=== PATIENT | male | born 1945 | race American Indian/Alaskan Native ===

== ENCOUNTER 2017-01-19 05:42 | Inpatient (IN) | payer MEDICARE ==
--- NOTE | 2017-01-19 06:36 | Emergency Department Report ---
HPI - General Chief Complaint: Chest Pain Time Seen by Provider: 01/19/17 06:20 - HPI HPI: Room 21 The patient is a 71-year-old male presenting with chief complaint of extremity discomfort and diaphoresis. Patient states she is having difficulty sleeping this evening so he got up. The patient states that approximately 04:00 developed an uneasiness in bilateral upper extremities. When asked to qualify this sensation the patient states is difficult to describe but he just "couldn' t relax" in his arms. The patient states he then became diaphoretic. The patient states he laid down on the floor thinking it would help and took 2 nitroglycerin because he thought he was having a heart attack. Patient states he then called EMS. The patient states the symptoms lasted approximately 10 minutes and then resolved. Patient denied ever having had chest pain or shortness of breath. Patient has had multiple cardiac stents and had a bypass surgery in 2007. Patient states he suffered an NV in October 2016 which revealed one of his bypass grafts had required restenting. The patient's only complaint now is feeling sleepy. Patient states his bilateral upper extremity discomfort and diaphoresis has resolved and he has no other complaints. The patient states she's been compliant with his Plavix Location: [see above] Duration: [see above] Quality: "Couldn't relax" Severity: Moderate Modifying factors: [see above] Context: [see above] Mode of transportation: [not driving] ED Past Medical Hx - Past Medical History Previous Medical History?: Yes Hx Hypertension: Yes Hx Heart Attack/AMI: Yes Hx Diabetes: Yes Hx Pulmonary Embolism: Yes - Surgical History Past Surgical History?: Yes Hx Coronary Stent: Yes (X4) Additional Surgical History: pacemaker, Bypass (2007) - Family History Family history: no significant - Social History Smoking Status: Former Smoker (none 50 years) Substance Use Type: Alcohol (occasional) - Medications Home Medications: Home Medications Medication Instructions Recorded Confirmed Last Taken Type Atorvastatin Calcium [Lipitor] 40 mg PO QHS 01/19/17 01/19/17 01/18/17 History Carvedilol [Coreg] 6.25 mg PO BID 01/19/17 01/19/17 01/18/17 History Cholecalciferol (Vitamin D3) 1,000 unit PO DAILY 01/19/17 01/19/17 01/18/17 History [Vitamin D3] Clopidogrel Bisulfate [Plavix] 75 mg PO DAILY 01/19/17 01/19/17 01/18/17 History Lisinopril [Zestril] 5 mg PO QDAY 01/19/17 01/19/17 01/18/17 History Melatonin 3 mg PO QHS 01/19/17 01/19/17 01/18/17 History Mirtazapine 30 mg PO QHS 01/19/17 01/19/17 01/18/17 History Nitroglycerin [Nitrostat] 0.4 mg SL Q5M PRN 01/19/17 01/19/17 01/19/17 History Ropinirole HCl [rOPINIRole] 2 mg PO QHS 01/19/17 01/19/17 01/18/17 History ED Review of Systems ROS: Stated complaint: CHEST PAIN Other details as noted in HPI Comment: All other systems reviewed and negative Constitutional: diaphoresis Eyes: denies: eye pain, eye discharge, vision change ENT: denies: ear pain, throat pain Respiratory: denies: cough, shortness of breath, wheezing Cardiovascular: denies: chest pain, palpitations Endocrine: no symptoms reported Gastrointestinal: denies: abdominal pain, nausea, diarrhea Genitourinary: denies: urgency, dysuria Musculoskeletal: other (arms "couldn't relax") Skin: denies: rash, lesions Neurological: denies: headache, weakness, paresthesias Psychiatric: denies: anxiety, depression Hematological/Lymphatic: denies: easy bleeding, easy bruising Physical Exam - Physical Exam Vital Signs: Vital Signs 01/19/17 01/19/17 06:08 06:18 Temperature 97.6 F Pulse Rate 84 Respiratory 11 L Rate Blood Pressure 149/87 O2 Sat by Pulse 100 Oximetry Physical Exam: GENERAL: The patient is well-developed well-nourished male sitting on stretcher not appearing to be in acute distress. [] HEENT: Normocephalic. Atraumatic. Extraocular motions are intact. Patient has moist mucous membranes. NECK: Supple. No meningitic signs are noted. Trachea midline CHEST/LUNGS: Clear to auscultation. There is no respiratory distress noted. HEART/CARDIOVASCULAR: Regular. There is no tachycardia. There is no gallop rub or murmur. ABDOMEN: Abdomen is soft, nontender. Patient has normal bowel sounds. There is no abdominal distention. SKIN: There is no rash. There is no edema. There is no diaphoresis. NEURO: The patient is awake, alert, and oriented. The patient is cooperative. The patient has normal speech MUSCULOSKELETAL: There is no evidence of acute injury. ED Course Vital Signs 01/19/17 01/19/17 06:08 06:18 Temperature 97.6 F Pulse Rate 84 Respiratory 11 L Rate Blood Pressure 149/87 O2 Sat by Pulse 100 Oximetry ED Medical Decision Making - Lab Data Result diagrams: 01/19/17 06:17 01/19/17 06:17 Laboratory Tests 01/19/17 01/19/17 01/19/17 06:17 06:17 06:39 WBC 10.3 RBC 3.97 Hgb 13.1 Hct 38.2 MCV 96 H MCH 33 H MCHC 34 RDW 13.8 Plt Count 197 Lymph % (Auto) 19.3 [place] % (Auto) 5.1 Eos % (Auto) 3.4 Baso % (Auto) 0.6 Lymph # 2.0 [place] # 0.5 Eos # 0.3 Baso # 0.1 Seg Neutrophils % 71.6 H Seg Neutrophils # 7.4 D-Dimer 327.21 H Sodium 142 Potassium 4.3 Chloride 105.9 Carbon Dioxide 21 L Anion Gap 19 BUN 15 Creatinine 1.2 Estimated GFR > 60 BUN/Creatinine Ratio 12.50 Glucose 136 H Calcium 9.1 Troponin T < 0.010 NT-Pro-B Natriuret Pep 01/19/17 06:39 WBC RBC Hgb Hct MCV MCH MCHC RDW Plt Count Lymph % (Auto) [place] % (Auto) Eos % (Auto) Baso % (Auto) Lymph # [place] # Eos # Baso # Seg Neutrophils % Seg Neutrophils # D-Dimer Sodium Potassium Chloride Carbon Dioxide Anion Gap BUN Creatinine Estimated GFR BUN/Creatinine Ratio Glucose Calcium Troponin T NT-Pro-B Natriuret Pep 94.85 - EKG Data -: EKG Interpreted by Ma EKG shows normal: sinus rhythm Rate: normal - EKG Data When compared to previous EKG there are: no significant change Interpretation: unchanged when compared t (04/28/2009) - Radiology Data Radiology results: report reviewed (CT chest), image reviewed (CT chest) CT chest (read by radiologist)-there is no pulmonary embolism or aortic dissection seen. Coronary artery calcifications. - Differential Diagnosis ACS, PE, pericarditis, GERD, anxiety Critical care attestation.: If time is entered above; I have spent that time in minutes in the direct care of this critically ill patient, excluding procedure time. ED Disposition Clinical Impression: Anginal equivalent, Diaphoresis Disposition: OP ADMITTED IP TO THIS HOSP Is pt being admited?: Yes Does the pt Need Aspirin: Yes Condition: Fair Referrals: PRIMARY CARE, [Primary Care Provider] - 3-5 Days Time of Disposition: 08:49 (hospitalist paged)
[2017-01-19 06:46] LABS: Basophils % (Auto) 0.6 % (0.0-1.8); Eosinophils % (Auto) 3.4 % (0.0-4.3); Hematocrit 38.2 % (35.5-45.6); Hemoglobin 13.1 gm/dl (11.8-15.2); Mean Corpuscular HGB Conc 34 % (32-34); Mean Corpuscular Hemoglobin 33 pg (28-32); Mean Corpuscular Volume 96 fl (84-94); Platelet Count 197 K/mm3 (140-440); Red Blood Count 3.97 M/mm3 (3.65-5.03); Red Cell Distribution Width 13.8 % (13.2-15.2); White Blood Count 10.3 K/mm3 (4.5-11.0)
[2017-01-19 06:53] LABS: Anion Gap 19 mmol/L; Blood Urea Nitrogen 15 mg/dL (9-20); Calcium 9.1 mg/dL (8.4-10.2); Carbon Dioxide 21 mmol/L (22-30); Chloride 105.9 mmol/L (98-107); Glucose 136 mg/dL (75-100); Potassium 4.3 mmol/L (3.6-5.0); Sodium 142 mmol/L (137-145)
[2017-01-19] MEDS ORDERED: NACL ONE (07:46)
--- NOTE | 2017-01-19 08:41 | Cat Scan Report ---
FINAL REPORT EXAM: CT ANGIO CHEST HISTORY: extremity discomfort, diaphoresis. h/o pe TECHNIQUE: CT angiography of the chest was performed. Images were obtained after the administration of IV contrast. Coronal and sagittal reformatted images were obtained. PRIORS: None. FINDINGS: There are coronary artery atherosclerotic calcifications. There is no aortic dissection seen. There is no significant mediastinal or hilar mass seen. There are no filling defects seen within the pulmonary arterial circulation to suggest pulmonary embolism. There is no pneumothorax seen. The lungs are clear. There are no pleural effusions seen. IMPRESSION: There is no pulmonary embolism or aortic dissection seen. Coronary artery calcifications.
[2017-01-19] MEDS ORDERED: ASPIRIN PO ONE (08:49)
[2017-01-19] MEDS ORDERED: NITROSTAT SL PRN (09:40)
--- NOTE | 2017-01-19 09:49 | History and Physical Report ---
History of Present Illness Date of examination: 01/19/17 Date of admission: 01/19/17 Chief complaint: Left Sided chest pain History of present illness: Very pleasant 71-year-old -[place] male patient with significant past medical history of coronary artery disease status post CABG status post recent stents hypertension dyslipidemia fall asleep [facility] presented to the emergency room with the left-sided chest pain since last night like uneasiness and discomfort Patient grades his pain pressure type associated with mild nausea no vomiting and intermittent diaphoresis, denies shortness of breath or palpitations Denies headache or dizziness At the time of my evaluation patient denied any chest pain or shortness of breath First set of cardiac enzymes were negative, EKG no acute ST T changes Patient is on Plavix, beta blockers ,BEATA inhibitor's ,nitrates and statins and patient claims complains of his medications Past History Past Medical History: CAD, hypertension, hyperlipidemia Past Surgical History: CABG, PTCA, Other (permanent pacemaker) Social history: lives with family, smoking (former smoker 50 years), alcohol abuse (occasional), full code. denies: prescription drug abuse, IV drug use Family history: hypertension Medications and Allergies Allergies Allergy/AdvReac Type Severity Reaction Status Date / Time No Known Allergies Allergy Unverified 01/19/17 05:53 Home Medications Medication Instructions Recorded Confirmed Last Taken Type Atorvastatin Calcium [Lipitor] 40 mg PO QHS 01/19/17 01/19/17 01/18/17 History Carvedilol [Coreg] 6.25 mg PO BID 01/19/17 01/19/17 01/18/17 History Cholecalciferol (Vitamin D3) 1,000 unit PO DAILY 01/19/17 01/19/17 01/18/17 History [Vitamin D3] Clopidogrel Bisulfate [Plavix] 75 mg PO DAILY 01/19/17 01/19/17 01/18/17 History Lisinopril [Zestril] 5 mg PO QDAY 01/19/17 01/19/17 01/18/17 History Melatonin 3 mg PO QHS 01/19/17 01/19/17 01/18/17 History Mirtazapine 30 mg PO QHS 01/19/17 01/19/17 01/18/17 History Nitroglycerin [Nitrostat] 0.4 mg SL Q5M PRN 01/19/17 01/19/1717 History Ropinirole HCl [rOPINIRole] 2 mg PO QHS 01/19/17 01/19/17 01/18/17 History Active Meds: Active Medications Atorvastatin Calcium (Lipitor) 40 mg PO QHS [facility] Carvedilol (Coreg) 6.25 mg PO BID [facility] Clopidogrel Bisulfate (Plavix) 75 mg PO DAILY [facility] Lisinopril (Zestril) 5 mg PO QDAY [facility] Mirtazapine (Remeron) 30 mg PO QHS [facility] Miscellaneous Medication (Ropinirole Hcl [Ropinirole]) 2 mg PO QHS [facility] Nitroglycerin (Nitrostat) 0.4 mg SL Q5M PRN PRN Reason: Chest Pain Review of Systems Constitutional: no weight loss, no weight gain, no fever, no chills Ears, nose, mouth and throat: no nasal congestion, no nasal discharge Cardiovascular: chest pain, no orthopnea, no palpitations, no syncope, no shortness of breath Respiratory: no cough, no shortness of breath Gastrointestinal: nausea, no abdominal pain, no vomiting Genitourinary Male: no dysuria, no hematuria Musculoskeletal: no myalgias, no arthritis Integumentary: no rash, no lesions Neurological: weakness, no numbness, no seizures Psychiatric: no anxiety, no depression Endocrine: no cold intolerance, no heat intolerance, no polyuria Hematologic/Lymphatic: no easy bruising, no easy bleeding Allergic/Immunologic: no urticaria, no allergic rhinitis Exam - Constitutional Vitals: Temp Pulse Resp BP Pulse Ox 98.1 F 83 16 144/81 99 01/19/17 08:34 01/19/17 08:34 01/19/17 08:34 01/19/17 08:34 01/19/17 08:34 General appearance: Present: no acute distress - EENT Eyes: Present: PERRL, EOM intact - Neck Neck: Present: supple, normal ROM - Respiratory Respiratory effort: normal Respiratory: negative: rales, rhonchi, wheezing - Cardiovascular Rhythm: regular Heart Sounds: Present: S1 & S2 - Extremities Extremities: no ischemia, pulses intact, pulses symmetrical Peripheral Pulses: within normal limits - Abdominal General gastrointestinal: Present: soft, non-tender, non-distended, normal bowel sounds - Integumentary Integumentary: Present: clear, warm - Musculoskeletal Musculoskeletal: strength equal bilaterally - Psychiatric Psychiatric: appropriate mood/affect, cooperative - Neurologic Neurologic: CNII-XII intact, moves all extremities Results - Labs CBC & Chem 7: 01/19/17 06:17 01/19/17 06:17 Labs: Abnormal lab results 01/19/17 01/19/17 01/19/17 Range/Units 06:17 06:17 06:39 MCV 96 H (84-94) fl MCH 33 H (28-32) pg Seg Neutrophils % 71.6 H (40.0-70.0) % D-Dimer 327.21 H (0-234) ng/mlDDU Carbon Dioxide 21 L (22-30) mmol/L Glucose 136 H (75-100) mg/dL Assessment and Plan --Chest pain rule out acute coronary syndrome Patient has significant history of coronary artery disease CABG/stents in October 2016 Serial cardiac enzymes, EKG, echocardiogram for left ventricle function and ejection fraction Resume antiplatelets, beta blockers, beata inhibitors, nitrates statins Pain medications and Lovenox Cardiology consultation for assistance with management for possible stress versus cath if needed --History of coronary artery disease status post CABG status post stent placement Continue current cardiac medications --Hypertension moderate control Resume antihypertensive medications and when necessary hydralazine --Dyslipidemia on statin --DVT prophylaxis on Lovenox Closely monitor the patient had just the management as needed Plan of care discussed with the patient care physician as well as the nurse
[2017-01-19] MEDS: ZESTRIL PO SCH (10:12)
[2017-01-19 15:18] LABS: Creatine Kinase MB 2.6 ng/mL (0.0-4.0)
[2017-01-19] MEDS: COREG PO SCH ×2 (18:15→22:29)
[2017-01-19] MEDS: PLAVIX PO SCH (18:15)
[2017-01-19] MEDS ORDERED: REMERON PO SCH (22:00)
[2017-01-19] MEDS ORDERED: LOVENOX SUB-Q SCH (22:00)
[2017-01-19] MEDS ORDERED: REQUIP PO SCH (22:00)
[2017-01-20 07:48] LABS: Basophils % (Auto) 0.7 % (0.0-1.8); Eosinophils % (Auto) 4.8 % (0.0-4.3); Hematocrit 38.6 % (35.5-45.6); Hemoglobin 13.1 gm/dl (11.8-15.2); Mean Corpuscular HGB Conc 34 % (32-34); Mean Corpuscular Hemoglobin 33 pg (28-32); Mean Corpuscular Volume 96 fl (84-94); Platelet Count 195 K/mm3 (140-440); Red Blood Count 4.01 M/mm3 (3.65-5.03); Red Cell Distribution Width 13.9 % (13.2-15.2); White Blood Count 6.9 K/mm3 (4.5-11.0)
[2017-01-20 08:10] LABS: Anion Gap 18 mmol/L; Calcium 9.2 mg/dL (8.4-10.2); Carbon Dioxide 21 mmol/L (22-30); Chloride 109.5 mmol/L (98-107); Glucose 116 mg/dL (75-100); Sodium 144 mmol/L (137-145)
[2017-01-20 09:02] LABS: Blood Urea Nitrogen 10 mg/dL (9-20)
[2017-01-20 11:06] VITALS: BP 148/102
--- NOTE | 2017-01-20 12:20 | Discharge Summary ---
Providers - Providers Date of Admission: 01/19/17 09:12 Date of discharge: 01/20/17 Attending physician: CLAUDIA MAURO 01/19/17 12:42 Consult to Physician [CONS] Routine Consulting Provider: DES NEFF Reason For Exam: chest pain/h/o CABG/recent stents Place consult to:: [facility] Notified:: a service Phone number called:: [phone] Was contact made?: Yes If yes, spoke with:: elzbieta Time called:: 14:49 Comment:: added to list Primary care physician: PLASTIC ROLLER Hospitalization Reason for admission: left chest pain of one-day duration Condition: Fair Pertinent studies: CT angiogram of the chest; negative for PE or aortic dissection Coronary artery calcifications noted Hospital course: Very pleasant 21-year-old -Indian male patient with significant history of coronary artery disease CABG recent stents hypertension dyslipidemia was admitted through emergency room with left-sided chest pain Patient had serial cardiac enzymes which were negative and EKG did not reveal any acute ST-T changes Initially requested cardiology for evaluation however patient symptoms significantly improved, and today morning patient feels comfortable and denies any chest pain or shortness of breath alert awake oriented 3 Vital signs are stable, [id number] evaluation and physical examination done by me prior to discharge is unremarkable Patient is on all appropriate cardiac medications and he claims complains with medications and follow up with his primary care physician as well as broomcorn scraper at [facility] Patient is hemodynamically and clinically stable for discharge Patient's atypical chest pain could be secondary to gastroesophageal reflux disease Prescription is given for Pepcid advised to follow with PMD and broomcorn scraper per schedule Final diagnosis; Atypical chest pain resolved Probably secondary to gastroesophageal reflux disease History of coronary artery disease status post CABG Status post PCI Hypertension Dyslipidemia Disposition: DISCHARGED TO HOME OR SELFCARE Time spent for discharge: 32 min Core Measure Documentation - Palliative Care Palliative Care/ Comfort Measures: Not Applicable - Core Measures Any of the following diagnoses?: none Exam - Constitutional Vitals: Temp Pulse Resp BP Pulse Ox 97.7 F 76 16 148/102 100 01/20/17 09:00 01/20/17 09:00 01/20/17 09:00 01/20/17 09:00 01/20/17 09:00 General appearance: Present: no acute distress, well-nourished - EENT Eyes: Present: PERRL, EOM intact - Neck Neck: Present: supple, normal ROM - Respiratory Respiratory effort: normal Respiratory: negative: rales, rhonchi, wheezing - Cardiovascular Rhythm: regular Heart Sounds: Present: S1 & S2 - Extremities Extremities: no ischemia, pulses intact, pulses symmetrical Peripheral Pulses: within normal limits - Abdominal General gastrointestinal: Present: soft, non-tender, non-distended, normal bowel sounds - Integumentary Integumentary: Present: clear, warm - Musculoskeletal Musculoskeletal: strength equal bilaterally - Psychiatric Psychiatric: appropriate mood/affect, cooperative - Neurologic Neurologic: CNII-XII intact, moves all extremities Plan Activity: no restrictions Diet: other (cardiac diet) Additional Instructions: f/u PMD 1 week. f/u Die Engraving Supervisor as needed or per schedule. If you have chest pain or shortness of breath contact M.D. or go to emergency room Follow up with: PRIMARY CARE, [Primary Care Provider] - 3-5 Days Prescriptions: Famotidine/Ca Carb/Mag Hydrox [Pepcid Complete Tablet Chew] 1 each PO BID #30 tab.[email or web address]
[2017-01-20] MEDS: PLAVIX PO SCH (13:25)
[2017-01-20] MEDS: ZESTRIL PO SCH (13:25)
[2017-01-20] MEDS: COREG PO SCH (13:26)
--- NOTE | 2017-01-20 19:18 | Admit Criteria Form ---
Admission Criteria Documentation: CARDIOLOGY GRG Clinical Indications for Admission to Inpatient Care ( Place 'X' for any and all applicable criteria): Hospital admission is needed for appropriate care of the patient because of ANY ONE of the following (1): [ ] I. Hemodynamic instability as indicated by ALL of the following (1)(2)(3) (4)(5) [ ]a) Vital signs or other findings not as expected for chronic patient condition or baseline [ ]b) Instability indicated by ANY ONE of the following: [ ]i) Hypotension [ ]ii) Symptomatic Tachycardia unresponsive to treatment ( e.g., analgesia, fluids, sedation as indicated) [ ]iii) Inadequate perfusion indicated by ANY ONE of the following: [ ] 1) Lactic acidosis (> 2 mmol/L) [ ] 2) New abnormal capillary refill (> 3 seconds) [ ] 3) Reduced urine output [ ] 4) New altered mental status [ ]iv) Orthostatic vital sign changes unresponsive to treatment (e.g., fluids) [ ]v) IV inotropic or vasopressor medication required to maintain adequate blood pressure or perfusion [ ] II. Severe heart failure as indicated by ANY ONE of the following(17)(18) [ ]a) Respiratory distress [ ]b) Hypotension [ ]c) Anasarca (refractory to outpatient therapy) [ ]d) Cardiac arrhythmias of immediate concern [ ]e) Myocardial ischemia [ ] III. Cardiac arrhythmias or findings of immediate concern indicated by ANY ONE of the following (19)(20): [ ] a) Heart rhythms that are inherently dangerous or unstable indicated by ANY ONE of the following (21)(22)(23): [ ] i) Resuscitated ventricular fibrillation or cardiac arrest [ ] ii) Ventricular escape rhythm [ ] iii) Sustained ventricular tachycardia (30 seconds or more of ventricular rhythm at greater than 100 beats per minute) [ ] iv) Nonsustained ventricular tachycardia and ANY ONE of the following: [ ] 1) Suspected cardiac ischemia as cause or consequence of ventricular tachycardia [ ] 2) In setting of acute myocarditis [ ] b) Unstable cardiac conduction defects indicated by ANY ONE of the following(23)(24)(25) [ ] i) Type II second-degree atrioventricular block [ ]ii) Third-degree atrioventricular block [ ]iii) New-onset left bundle branch block with suspected myocardial ischemia [ ]c) Any heart rhythm and ANY ONE of the following (21)(22)(26)(27) (28) [ ] i) Continuous long-term ECG monitoring needed (e.g., initiation of drug requiring monitoring for more than 24 hours) [ ] ii) Patient has automatic implanted cardioverter defibrillator that is repeatedly firing, malfunctioning, or in need of immediate adjustment of settings beyond the scope of ambulatory or observation care [ ]d) Heart rhythms of concern due to ANY ONE of the following: [ ] i) Hypotension [ ] ii) Respiratory distress [ ] iii) Association with other significant symptoms (e.g., bradycardia with syncope or ongoing dizziness, supraventricular tachycardia with chest pain (14)(15)(17) [ ] IV. Monitoring for cardiac contusion beyond the scope of observation care needed [A](30)(31)(32) [ ] V. Surgical or device complication (e.g., valve replacement complication , pacemaker dysfunction) (35)(41)(44)(45)(46) [ ] . Inpatient palliative care needed. [B](49) Also use Inpatient Palliative Care Criteria [ ] VII. Nonbacterial thrombotic (marantic) endocarditis (36)(43)(47)(48) [X ] VIII. Cardiology condition, symptom, or finding for which emergency and observation care has failed or are not considered appropriate. [ ] IX. Acute valvular disease requiring inpatient as indicated by ANY ONE of the following (41) [ ]a) Acute valvular regurgitation (42) [ ]b) Noninfectious valvulitis (43) [ ]c) Obstructive valve thrombosis [ ]d) Paravalvular leak [ ]e) Other significant valvular disorder remaining after emergency or observation level of care (as appropriate) [ ]X. Pericardial disease requiring inpatient treatment as indicated by ANY ONE of the following (33)(34)(35)(36)(37) [ ]a) Suspected tamponade (38)(39)(40) [ ]b) Hemopericardium [ ]c) Other significant pericardial disorder remaining after emergency or observation level of care (as appropriate) [ ] XI. Cardiac ischemia beyond scope of emergency and observation care. [ ] XII. Hypertension requiring inpatient treatment as indicated by ANY ONE of the following (6)(7)(8) [ ]a) SBP greater than 220 mm Hg or DBP greater than 120 mmHg despite treatment [ ]b) SBP greater than 140 mm Hg or DBP greater than 100 mm Hg with evidence of acute end organ damage as indicated by ANY ONE of the following [ ] i) Altered mental status [ ] ii) Acute renal failure as indicated by new onset of ANY ONE of the following (9)(10)(11)(12)(13) [ ]1) 3-fold rise in serum creatinine from baseline [ ]2) Serum creatinine greater than 4 mg/dL ( 354 micromoles/L) with acute rise greater than 0.5 mg/dL (44.2 micromoles/L) [ ]3) Reduction of more than 75% in estimated glomerular filtration rate from baseline [ ]4) Estimated glomerular filtration rate less than 35 mL/min/1.73m2 (0.59 mL/sec/1.73m2) in child up to 18 years of age [ ]5) Cessation of urine output indicated by ALL of the following [ ]A. Adequate volume status [ ]B. Inadequate urine output as indicated by ANY ONE of the following [ ]a. Urine output less than 0.3 mL/kg/hr for 24 hours [ ]b. Anuria (urine output less than 0.1 mL/kg/hr) for 12 hours [ ] iii) Aortic dissection [ ] iv) Myocardial Ischemia [ ] v) Left ventricular heart failure [ ]vi) Retinal Hemorrhage [ ]vii) Other significant finding [ ]c) Hypertension in child requiring inpatient treatment as indicated by ALL of the following(14)(15)(16) [ ] i) Outpatient treatment not effective, not available, or not appropriate [ ]ii) SBP or DBP greater than 95th percentile for age [ ]iii) Evidence of acute end organ damage as indicated by ANY ONE of the following [ ]1) Altered mental status [ ]2) Acute renal failure as indicated by new onset of ANY ONE of the following(9)(10)(11)(12)(13) [ ]A. 3-fold rise in serum creatinine from baseline [ ]B. Serum creatinine greater than 4 mg/dL (354 micromoles/L) with acute rise greater than 0.5 mg/dL (44.2 micromoles/L) [ ]C. Reduction of more than 75% in estimated glomerular filtration rate from baseline [ ]D. Estimated glomerular filtration rate less than 35 mL/min/1.73m2 (0.59 mL/sec/1.73m2) in child up to 18 years of age [ ]E. Cessation of urine output indicated by ALL of the following [ ]a. Adequate volume status [ ]b. Inadequate urine output as indicated by ANY ONE of the following [ ]i) Urine output less than 0.3 mL/kg/hr for 24 hours [ ]ii) Anuria ( urine output less than 0.1 mL/kg/hr) for 12 hours [ ]3) Severe headache [ ]4) Visual disturbance [ ]5) Retinal hemorrhage [ ]6) Other significant finding [ ]XIII. Complications of transplanted heart indicated by ANY ONE of the following(61): [ ]a) Acute graft rejection requiring inpatient management (eg, intravenous immunosuppression)(62)(63) [ ]b) Acute graft heart failure indicated by ANY ONE of the following(64): [ ]i) Hemodynamic instability [ ]ii) Cardiac arrhythmias of immediate concern [ ]iii) Pulmonary edema that is very severe (eg, mechanical ventilation needed, imminent or likely, need for 100% oxygen to keep oxygen saturation above 90%) [ ]iv) Pulmonary edema that is persistent as indicated by ALL of the following: [ ]1) New need for oxygen therapy to keep oxygen saturation above 90% (or increased FiO2 need from baseline) [ ]2) Has not improved sufficiently with emergency department or observation care IV diuretics or other heart failure treatments[E] [ ]v) Altered mental status that is severe or persistent [ ]vi) Increased creatinine (new on laboratory test) with reduction of more than 50% in estimated glomerular filtration rate from baseline [ ]vii) Progressively (ongoing) rising creatinine (known from past laboratory test) with reduction of more than 25% in estimated glomerular filtration rate from baseline [ ]viii) Acute renal failure [ ]ix) Acute peripheral ischemia (eg, examination shows pulseless, cool, mottled, or cyanotic extremity) [ ]x) Pulmonary artery catheter monitoring needed [ ]xi) Other sign or symptom of heart failure requiring inpatient treatment (ie, too severe or not responsive to outpatient and observation care treatment) [ ]c) Infection requiring inpatient management (eg, Hemodynamic instability, need for intravenous antimicrobial treatment)(66)(67)(68)(69)(70) [ ]d) Cardiac allograft vasculopathy requiring inpatient management ( eg evidence of cardiac ischemia)(71) [ ]e) Other complication of transplanted heart (eg, stroke, severe pulmonary hypertension, severe valvular dysfunction) requiring inpatient management(72) The original [facility] content created by [facility] has been revised. The portions of the content which have been revised are identified through the use of italic text or in bold, and [facility] has neither reviewed nor approved the modified material. All other unmodified content is copyright [facility] [employer]. Please see references footnoted in the original [facility] [employer] edition 2016 Admission Criteria Met: Yes
--- NOTE | 2017-01-20 20:03 | Event Note ---
Date: 01/20/17 The patient was discharged from the hospital and was gone before cardiology consultation could be completed. Cardiac consult was therefore not performed since the patient was no longer available. If needed, please have the patient see us in the office outpatient.
== END 2017-01-20 14:01 | disposition home or self-care (01) | DRG 392 ==
LOC: ED 05:42 → 4A 09:12
PROVIDERS: ADMIT Internal Medicine; ATTEND Internal Medicine
DX: K21.9 Gastro-esophageal reflux disease without esophagitis (principal); I10 Essential (primary) hypertension; E78.5 Hyperlipidemia, unspecified; E11.9 Type 2 diabetes mellitus without complications; I25.10 Atherosclerotic heart disease of native coronary artery without angina pectoris; Z87.891 Personal history of nicotine dependence; Z95.1 Presence of aortocoronary bypass graft; Z98.61 Coronary angioplasty status; Z86.711 Personal history of pulmonary embolism; Z95.0 Presence of cardiac pacemaker; Z82.49 Family history of ischemic heart disease and other diseases of the circulatory system
CPT/HCPCS: 36415; 71275; 80048; 80061; 82550; 82553; 82962; 83880; 84484; 85025; 85379; 93005; 93010; A9270-GY; J1650; Q9967

== ENCOUNTER 2017-05-23 03:35 | Inpatient (IN) | payer MEDICARE, OTHER ==
[2017-05-23 04:25] LABS: Basophils % (Auto) 0.4 % (0.0-1.8); Eosinophils % (Auto) 3.5 % (0.0-4.3); Hematocrit 39.8 % (35.5-45.6); Hemoglobin 13.8 gm/dl (11.8-15.2); Mean Corpuscular HGB Conc 35 % (32-34); Mean Corpuscular Hemoglobin 33 pg (28-32); Mean Corpuscular Volume 96 fl (84-94); Platelet Count 173 K/mm3 (140-440); Red Blood Count 4.13 M/mm3 (3.65-5.03); Red Cell Distribution Width 14.1 % (13.2-15.2); White Blood Count 9.7 K/mm3 (4.5-11.0)
[2017-05-23 04:28] LABS: Anion Gap 19 mmol/L; Blood Urea Nitrogen 12 mg/dL (9-20); Calcium 9.4 mg/dL (8.4-10.2); Carbon Dioxide 22 mmol/L (22-30); Chloride 102.5 mmol/L (98-107); Glucose 126 mg/dL (75-100); Potassium 3.8 mmol/L (3.6-5.0); Sodium 140 mmol/L (137-145)
--- NOTE | 2017-05-23 06:35 | Emergency Department Report ---
ED Chest Pain HPI - General Chief Complaint: Chest Pain Stated Complaint: CHEST PAIN Time Seen by Provider: 05/23/17 06:30 Source: patient Mode of arrival: Stretcher Limitations: No Limitations - History of Present Illness Initial Comments: Patient is stated that he has chest pain left-sided started last night. Heaviness in nature similar to what he have in the beginning of the year when he have his four stents at [facility]. Complaint: chest pain -: Last night Onset: during rest Pain Location: substernal Severity scale (0 -10): 7 Quality: heaviness, similar to prior DC Improves With: nitroglycerin re: denies: nausea, vomting, diaphoresis, dyspnea Other Symptoms: denies: cough, fever, acid taste in mouth, palpitations Treatments Prior to Arrival: aspirin, nitroglycerin - Related Data Home Medications Medication Instructions Recorded Confirmed Last Taken Atorvastatin Calcium [Lipitor] 40 mg PO QHS 01/19/17 05/23/17 02/24/17 Cholecalciferol (Vitamin D3) 2,000 unit PO DAILY 01/19/17 05/23/17 02/24/17 [Vitamin D3] Clopidogrel Bisulfate [Plavix] 75 mg PO DAILY 01/19/17 05/23/17 02/24/17 Lisinopril [Zestril TAB] 5 mg PO QDAY 01/19/17 05/23/17 02/24/17 Mirtazapine 30 mg PO QHS 01/19/17 05/23/17 02/24/17 Ropinirole HCl [rOPINIRole] 2 mg PO QHS 01/19/17 05/23/17 02/24/17 Aspirin EC [Aspirin Enteric Coated 81 mg PO QDAY 03/04/17 05/23/17 02/24/17 TAB] Omeprazole Magnesium [PriLOSEC Otc] 40 mg PO QDAY 03/04/17 05/23/17 02/24/17 Ferrous Sulfate [Feosol] 325 mg PO BID 05/23/17 05/23/17 Unknown Allergies Allergy/AdvReac Type Severity Reaction Status Date / Time No Known Allergies Allergy Verified 03/04/17 11:27 Heart Score - HEART Score History: Highly suspicious EKG: Non-specific Age: > 65 Risk factors: > 3 risk factors or hx of atherosclerotic disease Troponin: < normal limit HEART Score: 7 - Critical Actions Critical Actions: >7 pts:50-65% risk of adverse cardiac event. Early invasive measures ED Review of Systems ROS: Stated complaint: CHEST PAIN Other details as noted in HPI Comment: All other systems reviewed and negative Constitutional: denies: chills, fever Respiratory: denies: cough, shortness of breath Cardiovascular: chest pain. denies: palpitations, dyspnea on exertion, edema, syncope Gastrointestinal: denies: abdominal pain, nausea, vomiting Skin: denies: rash Neurological: denies: headache, numbness, paresthesias ED Past Medical Hx - Past Medical History Previous Medical History?: Yes Hx Hypertension: Yes Hx Heart Attack/AMI: Yes (10/2016) Hx Diabetes: Yes Hx Pulmonary Embolism: Yes - Surgical History Hx Coronary Stent: Yes (X4) Additional Surgical History: pacemaker, Bypass (2008) - Social History Smoking Status: Never Smoker Substance Use Type: None - Medications Home Medications: Home Medications Medication Instructions Recorded Confirmed Last Taken Type Atorvastatin Calcium [Lipitor] 40 mg PO QHS 01/19/17 05/23/17 02/24/17 History Cholecalciferol (Vitamin D3) 2,000 unit PO DAILY 01/19/17 05/23/17 02/24/17 History [Vitamin D3] Clopidogrel Bisulfate [Plavix] 75 mg PO DAILY 01/19/17 05/23/17 02/24/17 History Lisinopril [Zestril TAB] 5 mg PO QDAY 01/19/17 05/23/17 02/24/17 History Mirtazapine 30 mg PO QHS 01/19/17 05/23/17 02/24/17 History Ropinirole HCl [rOPINIRole] 2 mg PO QHS 01/19/17 05/23/17 02/24/17 History Aspirin EC [Aspirin Enteric Coated 81 mg PO QDAY 03/04/17 05/23/17 02/24/17 History TAB] Omeprazole Magnesium [PriLOSEC Otc] 40 mg PO QDAY 03/04/17 05/23/17 02/24/17 History Ferrous Sulfate [Feosol] 325 mg PO BID 05/23/17 05/23/17 Unknown History ED Physical Exam - General Limitations: No Limitations General appearance: alert, in no apparent distress - Head Head exam: Present: atraumatic, normocephalic - Eye Eye exam: Present: normal appearance - ENT ENT exam: Present: normal exam - Neck Neck exam: Present: normal inspection. Absent: tenderness, meningismus, full ROM - Respiratory Respiratory exam: Present: normal lung sounds bilaterally. Absent: respiratory distress, wheezes, chest wall tenderness, decreased breath sounds - Cardiovascular Cardiovascular Exam: Present: normal rhythm, normal heart sounds. Absent: bradycardia, tachycardia - GI/Abdominal GI/Abdominal exam: Present: soft. Absent: distended, tenderness, guarding, rebound - Back Exam Back exam: Present: normal inspection. Absent: CVA tenderness (R), CVA tenderness (L) - Neurological Exam Neurological exam: Present: alert, oriented X3, CN II-XII intact - Skin Skin exam: Present: warm, intact ED Course Vital Signs 05/23/17 05/23/17 05/23/17 03:55 04:07 04:19 Temperature 98.4 F Pulse Rate 81 83 Respiratory 16 13 13 Rate Blood Pressure 148/95 Blood Pressure 144/89 [Right] O2 Sat by Pulse 100 100 100 Oximetry 05/23/17 05/23/17 05/23/17 04:30 05:00 05:31 Temperature Pulse Rate 80 87 84 Respiratory 16 18 14 Rate Blood Pressure 142/82 156/87 160/89 Blood Pressure [Right] O2 Sat by Pulse 100 100 99 Oximetry 05/23/17 06:00 Temperature Pulse Rate 81 Respiratory 21 Rate Blood Pressure 123/71 Blood Pressure [Right] O2 Sat by Pulse 100 Oximetry - Reevaluation(s) Reevaluation #1: 05/23/17 07:16 Patient still denying chest pain at this moment we'll admit for rule out. Discussed with Jacy DENTURE WAXER for admission. ED Medical Decision Making - Lab Data Result diagrams: 05/23/17 03:57 05/23/17 03:57 Critical care attestation.: If time is entered above; I have spent that time in minutes in the direct care of this critically ill patient, excluding procedure time. ED Disposition Clinical Impression: Chest pain Disposition: -09 OP ADMIT IP TO THIS HOSP Is pt being admited?: Yes Instructions: Chest Pain (ED) Referrals: PRIMARY CARE,MD [Primary Care Provider] - 3-5 Days
--- NOTE | 2017-05-23 07:33 | XRay Report ---
AP CHEST: HISTORY: chest pain Previous cardiac surgery changes. A 2-lead pacemaker device is in position. AP view of the chest demonstrates a normal mediastinal and cardiac contour with clear lungs and normal bony and soft tissue structures. IMPRESSION: Unremarkable AP chest.
--- NOTE | 2017-05-23 07:50 | Admit Criteria Form ---
Admission Criteria Documentation: CHEST PAIN Clinical Indications for Admission to Inpatient Care (Place 'X' for any and all applicable criteria): Admission is indicated for chest pain and ANY ONE of the following(1)(2)(3)(4)(5 ): [ ]I. Angina with acute coronary syndrome (Also use Myocardial Infarction or Angina guideline) [ ]II. Hemodynamic instability [X ]III. Angina needing acute intervention as indicated by ALL of the following (11)(12): [ X]a) Unstable angina is present as indicated by angina that is ANY ONE of the following: [ ]i) New onset [ X]ii) Nocturnal [ ]iii) Prolonged at rest [ ]iv) Progressive [X ]b) Angina warrants acute intervention as indicated by ANY ONE of the following: [ ]i) Recurrent angina (e.g, not responding as previously to treatment) [ ]ii) Angina at rest or with low-level activities despite initial medical therapy [ ]iii) New or presumably new ST-segment depression on ECG [ ]iv) Signs or symptoms of heart failure (eg, dyspnea, pulmonary edema) [ ]v) New or worsening mitral regurgitation [ ]vi) Hemodynamic instability [ ]vii) Dangerous arrhythmia (eg, sustained ventricular tachycardia) [ ]viii) History of percutaneous coronary intervention within 6 months [ ]ix) History of coronary artery bypass graft surgery [ ]x) SHIRLEY risk score of 2 or greater[A] [X ]xi) History of Diabetes(14) [ ]xii) High-risk cardiac ischemia findings on noninvasive testing (e.g, echocardiogram, treadmill testing, nuclear scan) [ ]xiii) Chronic renal insufficiency (ie, estimated GFR less than 60 mL/min/1.732m) [ ]xiv) Left ventricular ejection fraction less than 40% [ ]IV. Evidence of DC (eg, cardiac biomarkers positive, ST-segment elevation on ECG) also use Myocardial Infarction Criteria Form. [ ]V. Pulmonary edema [ ]. Respiratory distress [ ]VII. Chest pain indicative of serious diagnosis other than coronary artery disease (eg, aortic dissection) [ ]VIII. Contraindications and/or Inappropriate clinical situations for Observational Care in patients with Chest Pain, when ANY ONE of the following is required: [ ]a) Patient with risk factor for pulmonary embolism, acute coronary syndrome and myocardial infarction (18) [ ]b) Patient with Pulmonary embolism require an average LOS of 4.3 days, therefore emergency department observation management is inappropriate 18,23 [ ]c) Painful condition/s in the elderly, have the highest rate of recidivism after emergency department observation management (10.8%) 20,21,22 [ ]d) Elevated cardiac biomarker requires intensive and exhaustive care (19) [X ]IX. General contraindications and/or Inappropriate clinical situations for Observational Care in patients with Chest Pain, when ANY ONE of the following is required: [X ]a) Prediction of prolongation of LOS based on ANY ONE of the following may be considered as a contraindication for observational care 2, 3, 4, 5, 6, 7, 8, 9, 10, 11 [ X]i) Age > 65 yrs. [X ]ii) Patient arriving by ambulance [ ]iii) Patient with high acuity [ ]iv) Patient requiring vital sign monitoring [ ]v) Patient on IV medication [ ]b) Systolic blood pressures 180mmHg 3,12 [ ]c) Patient with altered mental status including delirium and other alteration of consciousness, (3) [ ]d) Patient whose discharge disposition will be to a penitentiary home or rehabilitation home should not be managed in Emergency Department Observation Unit. CMS rule requires 3 days hospital stay before such placement. 3,13 [ ]e) Patient with failure to thrive due to broad array of etiologies 3,16,17 [ ]f) Inability to ambulate 3,14 Extended stay beyond goal length of stay may be needed for (1)(28): [ ]a) Specific condition diagnosed after evaluation (eg, pulmonary embolism, aortic dissection) [ ]b) Unstable angina [ ]c) Continued suspicion of acute coronary syndrome with inability to complete needed cardiac evaluation (eg, patient clinically unable to undergo stress testing) [ ]d) Myocardial infarction (Contents from ANGINA and CHEST PAIN clinical indications for admission to inpatient care have been integrated in this form) The original [employer] content created by [employer] has been revised. The portions of the content which have been revised are identified through the use of italic text or in bold, and [facility] has neither reviewed nor approved the modified material. All other unmodified content is copyright [facility]. Please see references footnoted in the original [facility] edition 2016 Admission Criteria Met: Yes
[2017-05-23] MEDS ORDERED: TYLENOL PO PRN (08:11)
[2017-05-23] MEDS ORDERED: DULCOLAX PR PRN (08:11)
[2017-05-23] MEDS ORDERED: MORPHINE IV PRN (08:11)
--- NOTE | 2017-05-23 08:16 | History and Physical Report ---
<ISRA PHAM - Last Filed: 05/26/17 07:25> History of Present Illness Date of examination: 05/23/17 Date of admission: 05/23/2017 Chief complaint: Chest pain History of present illness: Patient is a 71 years -[place] male with past medical history of hypertension, diabetes mellitus, hyperlipidemia and recent [place], who presented to the ED complaining of right chest pain. He states that the pain began last night and consisted of a dull pain. The pain was located over his left chest area somewhat near his shoulder; non radiating. The onset of pain came while the patient was at home watching TV. The pain is a dull, constant pain. He continued to have several episodes of the pain throughout the night, so he decided to call 911 and they brought him to the emergency department. The painful episodes did not increase in intensity or severity during this time. Patient was given nitroglycerin, ASA and which he claims helped alleviate the pain somewhat. All There is no aggravating factor. The patient currently rated his pain a score of 3/10. He experienced shortness of breath and diaphoresis during these episodes of pain. He denies nausea vomiting. Past History Past Medical History: diabetes, hypertension, other (OK on October 2016) Past Surgical History: CABG (2007) Social history: denies: smoking, alcohol abuse Family history: CAD, hypertension Medications and Allergies Allergies Allergy/AdvReac Type Severity Reaction Status Date / Time No Known Allergies Allergy Verified 03/04/17 11:27 Home Medications Medication Instructions Recorded Confirmed Last Taken Type Atorvastatin Calcium [Lipitor] 40 mg PO QHS 01/19/17 05/23/17 02/24/17 History Cholecalciferol (Vitamin D3) 2,000 unit PO DAILY 01/19/17 05/23/17 02/24/17 History [Vitamin D3] Clopidogrel Bisulfate [Plavix] 75 mg PO DAILY 01/19/17 05/23/17 02/24/17 History Lisinopril [Zestril TAB] 5 mg PO QDAY 01/19/17 05/23/17 02/24/17 History Mirtazapine 30 mg PO QHS 01/19/17 05/23/17 02/24/17 History Ropinirole HCl [rOPINIRole] 2 mg PO QHS 01/19/17 05/23/17 02/24/17 History Aspirin EC [Aspirin Enteric Coated 81 mg PO QDAY 03/04/17 05/23/17 02/24/17 History TAB] Omeprazole Magnesium [PriLOSEC Otc] 40 mg PO QDAY 03/04/17 05/23/17 02/24/17 History Ferrous Sulfate [Feosol] 325 mg PO BID 05/23/17 05/23/17 Unknown History Active Meds: Active Medications Acetaminophen (Tylenol) 650 mg PO Q4H PRN PRN Reason: Pain MILD(1-3)/Fever >100.5/BERNAL Aspirin (Halfprin Ec) 81 mg PO QDAY [facility] Atorvastatin Calcium (Lipitor) 40 mg PO QHS [facility] Bisacodyl (Dulcolax) 10 mg [place] QDAY PRN PRN Reason: Constipation unrelieved by MOM Clopidogrel Bisulfate (Plavix) 75 mg PO DAILY [facility] Enoxaparin Sodium (Lovenox) 40 mg SUB-Q QDAY [facility] Ferrous Sulfate (Feosol) 325 mg PO BID [facility] Dextrose/Sodium Chloride (D5/0.45ns) 1,000 mls @ 75 mls/hr IV DIRECT [facility] Lisinopril (Zestril) 5 mg PO QDAY [facility] Mirtazapine (Remeron) 30 mg PO QHS [facility] Miscellaneous Medication (Cholecalciferol (Vitamin D3) [Vitamin D3]) 2,000 unit PO DAILY [facility] Miscellaneous Medication (Omeprazole Magnesium [Prilosec Otc]) 40 mg PO QDAY [facility] Miscellaneous Medication (Ropinirole Hcl [Ropinirole]) 2 mg PO QHS [facility] Morphine Sulfate (Morphine) 2 mg IV Q4H PRN PRN Reason: Pain, Moderate (4-6) Review of Systems Constitutional: no weight loss, no weight gain, no fever Ears, nose, mouth and throat: no deferred, no ear pain, no ear discharge, no tinnitis, no decreased hearing Cardiovascular: chest pain, no palpitations, no rapid/irregular heart beat, no edema, no lightheadedness Respiratory: no cough, no cough with sputum, no excessive sputum, no hemoptysis , no shortness of breath Gastrointestinal: no nausea, no vomiting, no diarrhea Genitourinary Male: no hematuria, no flank pain, no discharge Rectal: no pain, no incontinence Musculoskeletal: no neck stiffness, no neck pain, no shooting arm pain, no low back pain Integumentary: no rash, no pruritis, no redness, no sores Neurological: no head injury, no transient paralysis, no paralysis Psychiatric: no anxiety, no memory loss, no change in sleep habits Endocrine: no cold intolerance, no heat intolerance, no polyphagia, no weight change Hematologic/Lymphatic: no easy bruising, no easy bleeding Allergic/Immunologic: no urticaria, no allergic rhinitis Exam - Constitutional Vitals: Temp Pulse Resp BP Pulse Ox 98.4 F 79 19 114/67 100 05/23/17 03:55 05/23/17 07:00 05/23/17 07:00 05/23/17 07:00 05/23/17 07:00 General appearance: Present: no acute distress - EENT Eyes: Present: PERRL ENT: hearing intact - Respiratory Respiratory effort: normal Respiratory: bilateral: CTA - Cardiovascular Rhythm: regular Heart Sounds: Present: S1 & S2 - Extremities Extremities: no ischemia Peripheral Pulses: within normal limits - Abdominal General gastrointestinal: Present: soft, non-tender Male genitourinary: Present: deferred - Rectal Rectal Exam: deferred - Integumentary Integumentary: Present: clear, warm, dry - Musculoskeletal Musculoskeletal: strength equal bilaterally - Psychiatric Psychiatric: appropriate mood/affect - Neurologic Neurologic: CNII-XII intact - Allied Health Allied health notes reviewed: nursing Results - Labs CBC & Chem 7: 05/23/17 03:57 05/23/17 03:57 Labs: Laboratory Last Values WBC 9.7 K/mm3 (4.5-11.0) 05/23/17 03:57 RBC 4.13 M/mm3 (3.65-5.03) 05/23/17 03:57 Hgb 13.8 gm/dl (11.8-15.2) 05/23/17 03:57 Hct 39.8 % (35.5-45.6) 05/23/17 03:57 MCV 96 fl (84-94) H 05/23/17 03:57 MCH 33 pg (28-32) H 05/23/17 03:57 MCHC 35 % (32-34) H 05/23/17 03:57 RDW 14.1 % (13.2-15.2) 05/23/17 03:57 Plt Count 173 K/mm3 (140-440) 05/23/17 03:57 Lymph % (Auto) 24.8 % (13.4-35.0) 05/23/17 03:57 [place] % (Auto) 6.9 % (0.0-7.3) 05/23/17 03:57 Eos % (Auto) 3.5 % (0.0-4.3) 05/23/17 03:57 Baso % (Auto) 0.4 % (0.0-1.8) 05/23/17 03:57 Lymph # 2.4 K/mm3 (1.2-5.4) 05/23/17 03:57 [place] # 0.7 K/mm3 (0.0-0.8) 05/23/17 03:57 Eos # 0.3 K/mm3 (0.0-0.4) 05/23/17 03:57 Baso # 0.0 K/mm3 (0.0-0.1) 05/23/17 03:57 Seg Neutrophils % 64.4 % (40.0-70.0) 05/23/17 03:57 Seg Neutrophils # 6.2 K/mm3 (1.8-7.7) 05/23/17 03:57 Sodium 140 mmol/L (137-145) 05/23/17 03:57 Potassium 3.8 mmol/L (3.6-5.0) 05/23/17 03:57 Chloride 102.5 mmol/L (98-107) 05/23/17 03:57 Carbon Dioxide 22 mmol/L (22-30) 05/23/17 03:57 Anion Gap 19 mmol/L 05/23/17 03:57 BUN 12 mg/dL (9-20) 05/23/17 03:57 Creatinine 1.1 mg/dL (0.8-1.5) 05/23/17 03:57 Estimated GFR > 60 ml/min 05/23/17 03:57 BUN/Creatinine Ratio 10.90 % 05/23/17 03:57 Glucose 126 mg/dL (75-100) H 05/23/17 03:57 Calcium 9.4 mg/dL (8.4-10.2) 05/23/17 03:57 Troponin T < 0.010 ng/mL (0.00-0.029) 05/23/17 06:19 Assessment and Plan Assessment and plan: Chest pain We will admit to telemetry for continuous cardiac monitoring demonstrates Normal sinus rhythm with HR of 63 beats per minute, normal intervals, normal axis, basic T-wave in V3, not consistent with STEMI Cardiac enzyme negative. Fluid hydration Stress test Lexiscan ordered Start on aspirin Morphine ordered for pain Cardiology consult Hypertension we will resum home antihypertensive medication IV hydralazine for SBP >160 Diabetes mellitus Accu-Chek before meals and at bedtime Sliding scale insulin/NovoLog Hyperlipidemia We will resume home antlipid medication. DVT prophylaxis Lovenox patient Full code Advance Directives: Yes Contraindication Mechanical VTE Prophylaxis: Treatment Not Indicated Plan of care discussed with patient/family: Yes <LUBA DIOR - Last Filed: 05/26/17 16:55> History of Present Illness Date of admission: 05/23/17 08:11 Exam - Constitutional Vitals: Temp Pulse Resp BP Pulse Ox 98.4 F 101 H 16 153/99 99 05/23/17 03:55 05/23/17 10:03 05/23/17 12:06 05/23/17 12:00 05/23/17 12:06 Results - Labs CBC & Chem 7: 05/23/17 03:57 05/23/17 03:57 Labs: Laboratory Last Values WBC 9.7 K/mm3 (4.5-11.0) 05/23/17 03:57 RBC 4.13 M/mm3 (3.65-5.03) 05/23/17 03:57 Hgb 13.8 gm/dl (11.8-15.2) 05/23/17 03:57 Hct 39.8 % (35.5-45.6) 05/23/17 03:57 MCV 96 fl (84-94) H 05/23/17 03:57 MCH 33 pg (28-32) H 05/23/17 03:57 MCHC 35 % (32-34) H 05/23/17 03:57 RDW 14.1 % (13.2-15.2) 05/23/17 03:57 Plt Count 173 K/mm3 (140-440) 05/23/17 03:57 Lymph % (Auto) 24.8 % (13.4-35.0) 05/23/17 03:57 [place] % (Auto) 6.9 % (0.0-7.3) 05/23/17 03:57 Eos % (Auto) 3.5 % (0.0-4.3) 05/23/17 03:57 Baso % (Auto) 0.4 % (0.0-1.8) 05/23/17 03:57 Lymph # 2.4 K/mm3 (1.2-5.4) 05/23/17 03:57 [place] # 0.7 K/mm3 (0.0-0.8) 05/23/17 03:57 Eos # 0.3 K/mm3 (0.0-0.4) 05/23/17 03:57 Baso # 0.0 K/mm3 (0.0-0.1) 05/23/17 03:57 Seg Neutrophils % 64.4 % (40.0-70.0) 05/23/17 03:57 Seg Neutrophils # 6.2 K/mm3 (1.8-7.7) 05/23/17 03:57 Sodium 140 mmol/L (137-145) 05/23/17 03:57 Potassium 3.8 mmol/L (3.6-5.0) 05/23/17 03:57 Chloride 102.5 mmol/L (98-107) 05/23/17 03:57 Carbon Dioxide 22 mmol/L (22-30) 05/23/17 03:57 Anion Gap 19 mmol/L 05/23/17 03:57 BUN 12 mg/dL (9-20) 05/23/17 03:57 Creatinine 1.1 mg/dL (0.8-1.5) 05/23/17 03:57 Estimated GFR > 60 ml/min 05/23/17 03:57 BUN/Creatinine Ratio 10.90 % 05/23/17 03:57 Glucose 126 mg/dL (75-100) H 05/23/17 03:57 POC Glucose 158 (70-105) H 05/23/17 11:41 Calcium 9.4 mg/dL (8.4-10.2) 05/23/17 03:57 Troponin T < 0.010 ng/mL (0.00-0.029) 05/23/17 12:09 Assessment and Plan Advance Directives: Yes Plan of care discussed with patient/family: Yes
[2017-05-23] MEDS ORDERED: D5/0.45NS 1,000 ML IV SCH (09:00)
[2017-05-23] MEDS ORDERED: LEXISCAN IV ONE ×3 (09:40→09:58)
[2017-05-23] MEDS ORDERED: PROTONIX PO SCH (10:00)
[2017-05-23] MEDS ORDERED: ZESTRIL PO SCH (10:00)
[2017-05-23] MEDS ORDERED: LOVENOX SUB-Q SCH (10:00)
[2017-05-23] MEDS ORDERED: FEOSOL PO SCH (10:00)
[2017-05-23] MEDS ORDERED: NON-FORMULARY (Cholecalciferol (Vitamin D3) [Vitamin D3] 2,000 UNIT) PO SCH (10:00)
[2017-05-23] MEDS ORDERED: PLAVIX PO SCH (10:00)
[2017-05-23] MEDS ORDERED: HALFPRIN EC PO SCH (10:00)
[2017-05-23] MEDS ORDERED: VITAMIN D3 PO SCH (10:00)
[2017-05-23] MEDS ORDERED: NON-FORMULARY (Omeprazole Magnesium [Prilosec Otc] 40 MG) PO SCH (10:00)
--- NOTE | 2017-05-23 11:26 | Consultation ---
History of Present Illness Consult date: 05/23/17 Consult reason: chest pain History of present illness: 71 year old -maldivian male presenting with acute onset chest pain yesterday lasting 1 hour in duration, retrosternal. Pain is described as heaviness. He is currently asymptomatic. He has a history of CAD s/p CABG 2007 and PCI 10/2016 with 4 BAILEE to the vein graft to the RCA. He presented to [facility] Oct 2016 with a NSTEMI. His MAHER to LAD was patent, [place] RCA is occluded and his SVG to RCA was noted to be subtotalled at that time. Patient has been compliant with his plavix therapy without interruption. His ECG here is showing T wave inversion anteriorly and this has been noted on previous ECG done at [place] Oct 2016. He reports that he is not able to take plavix and carvedilol at the same time. Past History Past Medical History: CAD, diabetes, hypertension, hyperlipidemia Past Surgical History: CABG Social history: other (former smoker) Medications and Allergies Allergies Allergy/AdvReac Type Severity Reaction Status Date / Time No Known Allergies Allergy Verified 03/04/17 11:27 Home Medications Medication Instructions Recorded Confirmed Last Taken Type Atorvastatin Calcium [Lipitor] 40 mg PO QHS 01/19/17 05/23/17 02/24/17 History Cholecalciferol (Vitamin D3) 2,000 unit PO DAILY 01/19/17 05/23/17 02/24/17 History [Vitamin D3] Clopidogrel Bisulfate [Plavix] 75 mg PO DAILY 01/19/17 05/23/17 02/24/17 History Lisinopril [Zestril TAB] 5 mg PO QDAY 01/19/17 05/23/17 02/24/17 History Mirtazapine 30 mg PO QHS 01/19/17 05/23/17 02/24/17 History Ropinirole HCl [rOPINIRole] 2 mg PO QHS 01/19/17 05/23/17 02/24/17 History Aspirin EC [Aspirin Enteric Coated 81 mg PO QDAY 03/04/17 05/23/17 02/24/17 History TAB] Omeprazole Magnesium [PriLOSEC Otc] 40 mg PO QDAY 03/04/17 05/23/17 02/24/17 History Ferrous Sulfate [Feosol] 325 mg PO BID 05/23/17 05/23/17 Unknown History Active Meds: Active Medications Acetaminophen (Tylenol) 650 mg PO Q4H PRN PRN Reason: Pain MILD(1-3)/Fever >100.5/BERNAL Aspirin (Halfprin Ec) 81 mg PO QDAY [facility] Atorvastatin Calcium (Lipitor) 40 mg PO QHS [facility] Bisacodyl (Dulcolax) 10 mg [place] QDAY PRN PRN Reason: Constipation unrelieved by MOM Cholecalciferol (Vitamin D3) 2,000 unit PO DAILY [facility] Clopidogrel Bisulfate (Plavix) 75 mg PO DAILY [facility] Enoxaparin Sodium (Lovenox) 40 mg SUB-Q QDAY [facility] Ferrous Sulfate (Feosol) 325 mg PO BID [facility] Dextrose/Sodium Chloride (D5/0.45ns) 1,000 mls @ 75 mls/hr IV DIRECT [facility] Lisinopril (Zestril) 5 mg PO QDAY [facility] Mirtazapine (Remeron) 30 mg PO QHS [facility] Morphine Sulfate (Morphine) 2 mg IV Q4H PRN PRN Reason: Pain, Moderate (4-6) Pantoprazole Sodium (Protonix) 40 mg PO DAILY [facility] Ropinirole HCl (Requip) 2 mg PO QHS [facility] Review of Systems All systems: negative Physical Examination Vital Signs Temp Pulse Resp BP Pulse Ox 98.4 F 81 16 144/89 100 05/23/17 03:55 05/23/17 03:55 05/23/17 03:55 05/23/17 03:55 05/23/17 03:55 General appearance: no acute distress HEENT: Positive: PERRL Neck: Positive: neck supple Cardiac: Positive: Reg Rate and Rhythm, Systolic Murmur Lungs: Positive: Normal Exam Neuro: Positive: Grossly Intact Abdomen: Positive: Soft Results 05/23/17 03:57 05/23/17 03:57 Assessment and Plan Chest Pain No ECG changes when compared to study done in [place] 11/18/2016 Neg Tc No evidence of convincing ischemia per MPI this admission Normal LVEF CAD s/p CABG 2007 and s/p PCI to SVG to RCA 10/2016 with 4 BAILEE Systemic Hypertension Type II DM Hyperlipidemia Recommendations: Continue current medical therapy Resume carvedilol at 6.25 mg po twice daily (do not administer with plavix) May go home and follow-up with Dr Russo in the office
[2017-05-23 12:17] VITALS: BP 153/99
--- NOTE | 2017-05-23 13:29 | Discharge Summary ---
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 He states that the pain began last night and consisted of a dull pain.Patient was diagnosed Chest pain Hypertension, Diabetes mellitus and Hyperlipidemia. Patient presented with atypical chest pain, ACS was ruled out, Normal MPI of stress Lexiscan, Normal LVEF, negative cardiac enzymes, ECGs shows normal sinus rythm, CXR was wnl. Patient chest pain probably from musculoskeletal. He was treated with IV fluid hydration, blood thinners, antihypertensive medications. Patient cleared by cardiology. Patient is clinically improved and stable for discharge. Patient advised to follow-up follow-up with cardiology Dr Russo in the office. Diagnosed Chest pain Hypertension Diabetes mellitus Hyperlipidemia Disposition: DC- TO HOME OR SELFCARE Time spent for discharge: 33 minutes Core Measure Documentation - Palliative Care Palliative Care/ Comfort Measures: Not Applicable - Core Measures Any of the following diagnoses?: none Exam - Constitutional Vitals: Temp Pulse Resp BP Pulse Ox 98.4 F 81 16 153/99 99 05/23/17 03:55 05/23/17 08:31 05/23/17 12:06 05/23/17 12:00 05/23/17 12:06 General appearance: Present: no acute distress - EENT Eyes: Present: PERRL ENT: hearing intact - Neck Neck: Present: supple - Respiratory Respiratory effort: normal Respiratory: bilateral: CTA - Cardiovascular Heart rate: 66 Rhythm: regular Heart Sounds: Present: S1 & S2 - Extremities Extremities: no ischemia Peripheral Pulses: within normal limits - Abdominal General gastrointestinal: Present: soft, non-tender Male genitourinary: Present: deferred - Rectal Rectal Exam: deferred - Integumentary Integumentary: Present: clear, warm, dry - Musculoskeletal Musculoskeletal: strength equal bilaterally - Psychiatric Psychiatric: appropriate mood/affect - Neurologic Neurologic: CNII-XII intact - Allied Health Allied health notes reviewed: nursing Plan Activity: no restrictions Weight Bearing Status: Weight Bear as Tolerated Diet: low fat, low cholesterol, low salt Follow up with: STEPHANIA HOOKS MD [Primary Care Provider] - 3-5 Days DARRYL RUSSO MD [Referring] - 7 Days <LUBA DIOR - Last Filed: 05/26/17 16:54> Providers - Providers Date of Admission: 05/23/17 08:11 Attending physician: LUBA DIOR MD 05/23/17 08:18 Consult to Physician [CONS] Routine Consulting Provider: RUBIN CHRISTIE Reason For Exam: chest pain Place consult to:: answering service Notified:: yes Phone number called:: [phone] Was contact made?: Yes If yes, spoke with:: Yenny Time called:: 08:27 Primary care physician: [employer]PER[employer] TEAM LEADER Exam - Constitutional Vitals: Temp Pulse Resp BP Pulse Ox 98.4 F 101 H 16 153/99 99 05/23/17 03:55 05/23/17 10:03 05/23/17 12:06 05/23/17 12:00 05/23/17 12:06
--- NOTE | 2017-05-23 20:46 | Treadmill Report ---
INDICATION: Chest pain. ORDERING PHYSICIAN: Dr. Freeman. FINDINGS: The left ventricular cavity is normal in size. There is evidence of a mild decrease in uptake noted in the lateral wall on stress images compared to the resting images. The left ventricle is normal in systolic function with an ejection fraction measured at 74%. CONCLUSION: Mild decrease in uptake noted in the lateral wall on the stress images compared to the resting images. Significance of this decrease in uptake is equivocal and therefore, clinical correlation is recommended. The left ventricle otherwise is normal in size and systolic function with an ejection fraction measured at 74%. Doubt significant ischemia. This is a low risk myocardial perfusion scan associated with a 1 year cardiovascular mortality of less than 1%. [facility]# [id number] JUAN/TAMICA
[2017-05-23] MEDS ORDERED: COREG PO SCH (22:00)
[2017-05-23] MEDS ORDERED: ROPINIROLE HCL 2 MG PO SCH (22:00)
[2017-05-23] MEDS ORDERED: REMERON PO SCH (22:00)
[2017-05-23] MEDS ORDERED: REQUIP PO SCH (22:00)
== END 2017-05-23 14:46 | disposition home or self-care (01) | DRG 313 ==
LOC: ED 03:35 → 4A 08:11
PROVIDERS: ADMIT Internal Medicine; ATTEND Internal Medicine
DX: R07.89 Other chest pain (principal); I10 Essential (primary) hypertension; I25.2 Old myocardial infarction; E11.9 Type 2 diabetes mellitus without complications; E78.5 Hyperlipidemia, unspecified; I25.10 Atherosclerotic heart disease of native coronary artery without angina pectoris; Z82.49 Family history of ischemic heart disease and other diseases of the circulatory system; Z95.1 Presence of aortocoronary bypass graft; Z86.711 Personal history of pulmonary embolism; Z79.82 Long term (current) use of aspirin; Z95.0 Presence of cardiac pacemaker; Z87.891 Personal history of nicotine dependence
CPT/HCPCS: 36415; 71010; 78452; 80048; 82962; 84484; 85025; 93005; 93010; 93017; 96374; A9502; J1650; J2785

== ENCOUNTER 2017-10-10 20:54 | Emergency (ER) | payer MEDICARE, OTHER ==
[2017-10-10] MEDS ORDERED: MORPHINE IV ONE (21:40)
--- NOTE | 2017-10-10 21:41 | Emergency Department Report ---
Chief Complaint: Neck Pain/Injury Stated Complaint: LT NECK SWELLING-S/P SX THIS A.M. - HPI History of Present Illness: 71-year-old male pw sudden onset left sided neck pain s/p surgical procedure today - ROS Review of Systems: Parotid gland removal surgery this morning done at [facility] as per patient. - Exam Vital Signs: Vital Signs 10/10/17 20:59 Temperature 98.1 F Pulse Rate 106 H Respiratory 20 Rate Blood Pressure 159/85 [Right] O2 Sat by Pulse 100 Oximetry Physical Exam: Palpable left sided neck swelling/edema/possible hematoma. No palpable thrill no audible bruit. Painful to palpation. Approximately 6 inch surgical scar fresh left-sided neck. MSE screening note: Focused history and physical exam performed. Due to findings the following was ordered: Screening Assessment/Plan/Differential Dx: Left-sided neck swelling, possible postsurgical complication 1- This initial assessment/diagnostic orders/clinical plan/ treatment(s) is/are subject to change based on pt's health status, clinical progression and re- assessment by fellow clinical providers in the ED. Further treatment and workup at subsequent clinical provers discretion. Patient/guardians urged not to elope from ED as their condition may be serious if not clinically assessed and managed. 2-as patient had left sided parotid gland removal this morning and is now experiencing pain with palpable swelling in this region my clinical concern is for possible hematoma in neck. I immediately informed charge nurse call skilled nursing facility counselor Arben and ED attending Dr. Casey regarding the patient's clinical issue 3-patient brought to a room in the main ED for further treatment and evaluation 4-I informed Dr. Casey that I would order CT angio of the neck to assess for possible subcutaneous hemorrhage and neck region. IV analgesia when necessary, labs including coags and type and screen, 5- I instructed the patient to not eat anything by mouth for now ED Medical Decision Making - Lab Data Result diagrams: 10/10/17 21:34 10/10/17 23:35 ED Disposition for MSE Clinical Impression: Neck pain on left side, Hematoma of neck, History of parotid gland excision Surgical complication Qualifiers: Surgical complication system/body Area: subcutaneous tissue Surgical complication type: subcutaneous emphysema Disposition: DC/TX-[facility] Condition: Stable Referrals: RUBIN CHANEL MD [Primary Care Provider] - 3-5 Days
[2017-10-10 22:07] LABS: Basophils % (Auto) 0.1 % (0.0-1.8); Hematocrit 39.4 % (35.5-45.6); Hemoglobin 13.6 gm/dl (11.8-15.2); Mean Corpuscular HGB Conc 35 % (32-34); Mean Corpuscular Hemoglobin 33 pg (28-32); Mean Corpuscular Volume 96 fl (84-94); Platelet Count 166 K/mm3 (140-440); Red Blood Count 4.11 M/mm3 (3.65-5.03); Red Cell Distribution Width 13.6 % (13.2-15.2)
[2017-10-10 22:23] LABS: INR 0.92 (0.87-1.13)
[2017-10-10 22:56] LABS: Anion Gap 22 mmol/L; BUN/Creatinine Ratio 14; Blood Urea Nitrogen 18 mg/dL (9-20); Carbon Dioxide 23 mmol/L (22-30); Glucose 480 mg/dL (75-100); Potassium 4.9 mmol/L (3.6-5.0); Sodium 135 mmol/L (137-145)
--- NOTE | 2017-10-11 00:08 | Cat Scan Report ---
FINAL REPORT PROCEDURE: CT ANGIO NECK TECHNIQUE: Computerized tomographic angiography of the neck was performed after the IV injection of iodinated nonionic contrast including image processing. The image data was postprocessed using 2-dimensional multiplanar reformatted (MPR) and 3-dimensional (MIP and/or volume rendered) techniques. HISTORY: left sided neck pain s/p surgery this AM COMPARISON: No prior studies are available for comparison. Note: Assessment of carotid artery stenosis is based on measurement of the distal internal carotid artery diameter as the denominator for stenosis calculations and the [place] Symptomatic Carotid Endarterectomy Trial (NASCET) stenosis criteria . CPT 3100F FINDINGS: Thoracic aortic arch, common carotid arteries, internal carotid arteries and vertebral arteries are patent. There is calcified plaque at the carotid bulbs. There is moderate stenosis of the left internal carotid artery. There is mild stenosis of the right internal carotid artery. There is a semi loculated collection of fluid and air in the left side of the neck inferior to the parotid gland extending to the level of the hyoid bone and measuring approximately 3 x 5 centimeters in diameter. This could be an abscess or infected hematoma. There is no specific evidence of active vascular extravasation. There is subcutaneous edema of the subcutaneous fat of the left side of the neck suggesting cellulitis or bruising. There is enlargement of the left sternocleidomastoid muscle suggesting myositis. The cervical vertebrae are intact. There are multilevel degenerative disc changes. There is no fracture or malalignment. There are no foreign bodies. Thyroid gland is within normal limits. IMPRESSION: There is a semi loculated collection of fluid and air in the left side of the neck inferior to the parotid gland extending to the level of the hyoid bone and measuring approximately 3 x 5 centimeters in diameter. This could be an abscess or infected hematoma. There is no specific evidence of active vascular extravasation. There is subcutaneous edema of the subcutaneous fat of the left side of the neck suggesting cellulitis or bruising. There is enlargement of the left sternocleidomastoid muscle suggesting myositis.
[2017-10-11 00:14] LABS: Anion Gap 22 mmol/L; BUN/Creatinine Ratio 15; Blood Urea Nitrogen 19 mg/dL (9-20); Calcium 9.8 mg/dL (8.4-10.2); Carbon Dioxide 22 mmol/L (22-30); Chloride 94.8 mmol/L (98-107); Glucose 449 mg/dL (75-100); Potassium 4.8 mmol/L (3.6-5.0); Sodium 134 mmol/L (137-145)
[2017-10-11] MEDS ORDERED: MORPHINE ONE (00:25)
--- NOTE | 2017-10-11 00:40 | XRay Report ---
FINAL REPORT PROCEDURE: XR CHEST 1V AP TECHNIQUE: Chest radiograph anteroposterior view. CPT 80529 HISTORY: chest pain COMPARISON: No prior studies are available for comparison. FINDINGS: Heart: Normal. Mediastinum/Vessels: Normal. Lungs/Pleural space: Lungs are clear. There are no infiltrates, effusions or pneumothoraces.. Bony thorax: No acute osseous abnormality. Life support devices: None. IMPRESSION: No acute cardiopulmonary abnormality. Pacemaker leads are in proper position.
--- NOTE | 2017-10-11 00:52 | Emergency Department Report ---
<KAYLA SANCHEZ - Last Filed: 10/11/17 00:52> ED Neck Pain/Injury HPI - General Chief Complaint: Neck Pain/Injury Stated Complaint: LT NECK SWELLING-S/P SX THIS A.M. Mode of arrival: Ambulatory Limitations: No Limitations - History of Present Illness Initial Comments: 71-year-old male past medical history hypertension history of CAD previously on Plavix, pacemaker presents with complaint of left-sided neck pain. Patient states that he had surgery done on his parotid gland earlier today at [facility] in [place]. Procedure was done under general anesthesia and apparently patient was discharged earlier today Patient states that his surgeon there was Dr. Bentley. Patient states that he was eating dinner and felt sudden onset left -sided neck pain and experienced swelling immediately after this. This occurred within the last few hours. On exam patient is awake alert and oriented 3 appears to be uncomfortable and states that he has pain in his left- sided neck. Patient is speaking in full sentences no audible wheezing or stridor. MD Complaint: other (neck surgery today) -: This morning Radiation: left lateral Severity: moderate Severity scale (0 -10): 6 Quality: sharp Consistency: intermittent Improves With: cold therapy, immobilization Worsens With: none Associated Symptoms: none Treatments Prior to Arrival: cold therapy - Related Data Home Medications Medication Instructions Recorded Confirmed Last Taken Atorvastatin Calcium [Lipitor] 40 mg PO QHS 01/19/17 05/23/17 02/24/17 Cholecalciferol (Vitamin D3) 2,000 unit PO DAILY 01/19/17 05/23/17 02/24/17 [Vitamin D3] Clopidogrel Bisulfate [Plavix] 75 mg PO DAILY 01/19/17 05/23/17 02/24/17 Lisinopril [Zestril TAB] 5 mg PO QDAY 01/19/17 05/23/17 02/24/17 Mirtazapine 30 mg PO QHS 01/19/17 05/23/17 02/24/17 Ropinirole HCl [rOPINIRole] 2 mg PO QHS 01/19/17 05/23/17 02/24/17 Aspirin EC [Aspirin Enteric Coated 81 mg PO QDAY 03/04/17 05/23/17 02/24/17 TAB] Omeprazole Magnesium [PriLOSEC Otc] 40 mg PO QDAY 03/04/17 05/23/17 02/24/17 Ferrous Sulfate [Feosol] 325 mg PO BID 05/23/17 05/23/17 Unknown Allergies Allergy/AdvReac Type Severity Reaction Status Date / Time No Known Allergies Allergy Verified 03/04/17 11:27 ED Review of Systems ROS: Stated complaint: LT NECK SWELLING-S/P SX THIS A.M. Other details as noted in HPI Constitutional: denies: chills, fever Eyes: denies: eye pain, eye discharge, vision change ENT: throat pain. denies: ear pain Respiratory: denies: cough, shortness of breath, wheezing Cardiovascular: denies: chest pain, palpitations Endocrine: no symptoms reported Gastrointestinal: denies: abdominal pain, nausea, diarrhea Genitourinary: denies: urgency, dysuria Musculoskeletal: denies: back pain, joint swelling, arthralgia Skin: denies: rash, lesions Neurological: denies: headache, weakness, paresthesias Psychiatric: denies: anxiety, depression Hematological/Lymphatic: denies: easy bleeding, easy bruising ED Past Medical Hx - Past Medical History Previous Medical History?: Yes Hx Hypertension: Yes Hx Heart Attack/AMI: Yes (10/2016) Hx Diabetes: Yes Hx Pulmonary Embolism: Yes - Surgical History Past Surgical History?: Yes Hx Coronary Stent: Yes (X4) Additional Surgical History: pacemaker, Bypass (2008) - Social History Smoking Status: Never Smoker Substance Use Type: None - Medications Home Medications: Home Medications Medication Instructions Recorded Confirmed Last Taken Type Atorvastatin Calcium [Lipitor] 40 mg PO QHS 01/19/17 05/23/17 02/24/17 History Cholecalciferol (Vitamin D3) 2,000 unit PO DAILY 01/19/17 05/23/17 02/24/17 History [Vitamin D3] Clopidogrel Bisulfate [Plavix] 75 mg PO DAILY 01/19/17 05/23/17 02/24/17 History Lisinopril [Zestril TAB] 5 mg PO QDAY 01/19/17 05/23/17 02/24/17 History Mirtazapine 30 mg PO QHS 01/19/17 05/23/17 02/24/17 History Ropinirole HCl [rOPINIRole] 2 mg PO QHS 01/19/17 05/23/17 02/24/17 History Aspirin EC [Aspirin Enteric Coated 81 mg PO QDAY 03/04/17 05/23/17 02/24/17 History TAB] Omeprazole Magnesium [PriLOSEC Otc] 40 mg PO QDAY 03/04/17 05/23/17 02/24/17 History Ferrous Sulfate [Feosol] 325 mg PO BID 05/23/17 05/23/17 Unknown History ED Physical Exam - General Limitations: No Limitations General appearance: alert, in no apparent distress - Head Head exam: Present: atraumatic, normocephalic - Eye Eye exam: Present: normal appearance - ENT ENT exam: Present: mucous membranes moist - Neck Neck exam: Present: normal inspection, tenderness (patient has left lateral neck tenderness immediately underneath fresh surgical scar. No active bruit on auscultation), full ROM (patient's neck flexion and extension is intact but slightly painful to patient) - Expanded Neck Exam Expanded 1 - Fresh surgical scar no active pulsation. Pain to palpation with some discoloration here - Respiratory Respiratory exam: Present: normal lung sounds bilaterally. Absent: respiratory distress - Cardiovascular Cardiovascular Exam: Present: regular rate, normal rhythm. Absent: systolic murmur, diastolic murmur, rubs, gallop - GI/Abdominal GI/Abdominal exam: Present: soft, normal bowel sounds - Rectal Rectal exam: Present: deferred - Extremities Exam Extremities exam: Present: normal inspection - Back Exam Back exam: Present: normal inspection - Neurological Exam Neurological exam: Present: alert, oriented X3 - Psychiatric Psychiatric exam: Present: normal affect, normal mood - Skin Skin exam: Present: warm, dry, intact, normal color. Absent: rash ED Course Vital Signs 10/10/17 10/11/17 10/11/17 20:59 00:12 00:52 Temperature 98.1 F 98.7 F Pulse Rate 106 H 100 H Respiratory 20 18 18 Rate Blood Pressure 159/85 145/77 [Right] O2 Sat by Pulse 100 100 Oximetry ED Medical Decision Making - Lab Data Result diagrams: 10/10/17 21:34 10/10/17 23:35 - Medical Decision Making A/P: Possible post surgical neck complication 1-case discussed with Dr. Grimes who also examined the patients. I informed charge nurse Danny of patient's clinical scenario 2-I contacted [facility] in [place] and spoke to sales and marketing administrator on duty Miss Ahmadi as well as Ms. Brewer at [phone] ext [phone]. I explained to them the clinical clinical concern and scenario. I then discussed case with Dr. Carranza on-call ENT physician. I also discussed case with Dr. Whitten ED attending [phone] ( ED) phone number). I informed the physicians of patient's clinical scenario and the results of the CT. CT is suggestive of subcutaneous emphysema and neck as well as possible infected hematoma. There is no vascular extravasation at this time as per CT angiogram of the neck. As per patient can be transferred ED to ED for ENT to continue his care and to observe him. 3-patient has stable vital signs is fully lucid awake alert and oriented and speaking without difficulty and has no overt signs of airway compromise on clinical exam. Oropharynx is patent. 100% O2 sat on room air 4- nothing by mouth, analgesia when necessary Critical care attestation.: If time is entered above; I have spent that time in minutes in the direct care of this critically ill patient, excluding procedure time. ED Disposition Clinical Impression: Hematoma of neck, History of parotid gland excision Disposition: [id number]/TX-[facility] Is pt being admited?: No Does the pt Need Aspirin: No Condition: Stable Referrals: RUBIN CHANEL MD [Primary Care Provider] - 3-5 Days <GIUSEPPE GRIMES T - Last Filed: 10/11/17 00:58> ED Course - Reevaluation(s) Reevaluation #1: 10/11/17 00:56 I have seen the patient and agree with the plan of care. Patient to be transferred to [facility] care of Dr. Whitten. ED Medical Decision Making - Lab Data Result diagrams: 10/10/17 21:34 10/10/17 23:35 ED Disposition Time of Disposition: 00:57
[2017-10-11] MEDS ORDERED: NACL 0.9% 500 ML 500 ML IV ONE (00:54)
[2017-10-11] MEDS ORDERED: NACL 0.9% 1000 ML 1,000 ML IV ONE (01:34)
[2017-10-11] MEDS ORDERED: NACL 0.9% 1000 ML 1,000 ML ONE (01:37)
[2017-10-11 01:59] VITALS: BP 169/109
[2017-10-11] MEDS ORDERED: NACL 0.9% 1000 ML 1,000 ML IV SCH (02:00)
== END 2017-10-11 02:30 | disposition designated cancer center or children's hospital (05) ==
LOC: ED 20:54
DX: T81.4XXA Infection following a procedure, initial encounter (principal); M54.2 Cervicalgia; G89.18 Other acute postprocedural pain; I10 Essential (primary) hypertension; I25.2 Old myocardial infarction; E11.9 Type 2 diabetes mellitus without complications; I26.99 Other pulmonary embolism without acute cor pulmonale; Z95.818 Presence of other cardiac implants and grafts
CPT/HCPCS: 36415; 70498; 71010; 80048; 82962; 84484; 85025; 85610; 85730; 86850; 86900; 86901; 93005; 93010; 96361; 96374; 99285; J2270; J7030; Q9967

== ENCOUNTER 2017-10-23 01:47 | Emergency (ER) | payer MEDICARE, OTHER ==
[2017-10-23 01:54] VITALS: BP 143/103
[2017-10-23 02:28] LABS: Basophils % (Auto) 0.5 % (0.0-1.8); Eosinophils # (Auto) 0.4 K/mm3 (0.0-0.4); Eosinophils % (Auto) 3.8 % (0.0-4.3); Hematocrit 41.2 % (35.5-45.6); Hemoglobin 14.4 gm/dl (11.8-15.2); Lymphocytes # (Auto) 3.3 K/mm3 (1.2-5.4); Mean Corpuscular HGB Conc 35 % (32-34); Mean Corpuscular Hemoglobin 34 pg (28-32); Mean Corpuscular Volume 96 fl (84-94); Monocytes # (Auto) 0.5 K/mm3 (0.0-0.8); Monocytes % (Auto) 5.5 % (0.0-7.3); Platelet Count 227 K/mm3 (140-440); Red Blood Count 4.28 M/mm3 (3.65-5.03); Red Cell Distribution Width 13.1 % (13.2-15.2)
[2017-10-23 02:46] LABS: BUN/Creatinine Ratio 21; Blood Urea Nitrogen 27 mg/dL (9-20); Calcium 10.4 mg/dL (8.4-10.2); Hemolysis Index 68
[2017-10-23 11:35] LABS: Bilirubin,Urine NEG (Negative); Blood,Urine NEG (Negative); Color,Urine Yellow (Yellow); Mucus,Urine FEW /HPF; Nitrite,Urine NEG (Negative); Protein,Urine <15 mg/dL mg/dL (Negative); Urobilinogen,Urine < 2.0 mg/dL (<2.0)
== END 2017-10-23 12:08 | disposition left against medical advice (07) ==
LOC: ED 01:47
DX: E11.65 Type 2 diabetes mellitus with hyperglycemia (principal); Z53.21 Procedure and treatment not carried out due to patient leaving prior to being seen by health care provider
CPT/HCPCS: 36415; 80048; 81001; 82805; 82962; 85025